=== PATIENT | male | born 1990 | race Two or more races ===

== ENCOUNTER 2021-10-25 12:24 | Emergency (ER) | payer OTHER ==
[2021-10-25 13:14] LABS: BASOPHIL 0.3 % (0-2); HCT 43.1 % (42.0-52.0); LYMPHOCYTE 36.9 % (15-48); MCH 29.8 pg (25.0-31.0); MCHC 34.8 g/dL (32.0-36.0); MCV 85.7 fL (78.0-100.0); MONOCYTE 6.3 % (0-12); MPV 12.2 fL (6.0-9.5); NEUTROPHIL 55.1 % (41-80); NRBC 0; PLT 149 K/uL (150-400); RBC 5.03 M/uL (4.70-6.00); RDW 11.9 % (11.5-14.0); WBC 7.2 K/uL (4.0-10.5)
[2021-10-25 13:29] LABS: BILIRUBIN - TOTAL 0.5 mg/dL (0.2-1.0); BUN/CREAT RATIO (CALC) 13.6 RATIO; CREATININE 1.1 mg/dL (0.67-1.17); GLOBULIN (CALCULATION) 3.9 g/dL; TOTAL PROTEIN 7.9 g/dL (6.4-8.2)
[2021-10-25 13:51] LABS: CORONAVIRUS 2019 SARS-COV-2 NEGATIVE (NEGATIVE); INFLUENZA A NAA NEGATIVE (NEGATIVE)
[2021-10-25 15:16] LABS: BILIRUBIN NEGATIVE (NEGATIVE); BLOOD NEGATIVE Ery/uL (NEGATIVE); CLARITY CLEAR (CLEAR); COLOR YELLOW (YELLOW); GLUCOSE (U) NORMAL (NORMAL); LEUKOCYTES NEGATIVE Leu/uL (NEGATIVE); NITRITE NEGATIVE (NEGATIVE); PROTEIN NEGATIVE (NEGATIVE); UROBILINOGEN 0.2 mg/dL (0.2-1.0)
[2021-10-25] MEDS ORDERED: BENTYL10 MG PO (15:54)
== END 2021-10-25 16:02 | disposition home or self-care (01) ==
LOC: FER 12:24
PROVIDERS: Nurse Practitioner Family
DX: M25.562 Pain in left knee (principal); M25.561 Pain in right knee; M25.532 Pain in left wrist; M25.531 Pain in right wrist; R10.9 Unspecified abdominal pain; Z20.822 Contact with and (suspected) exposure to COVID-19
CPT/HCPCS: 36415; 80053; 81003; 84550; 85025; J7030; Q9967; U0002